=== PATIENT | male | born 1965 | race Caucasian/White ===

== ENCOUNTER 2020-03-26 15:14 | Emergency (ER) | payer SELFPAY ==
[2020-03-26 15:17] VITALS: BP 114/84; PULSE 72; RESP 18; TEMP 36.2; O2SAT 98; BMI 32.3
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
[2020-03-26 15:45] VITALS: BP 106/73; PULSE 73; RESP 17; O2SAT 95
[2020-03-26] MEDS: TRAMadol 50 mg Tablet PO (15:48)
[2020-03-26 16:03] VITALS: BP 106/73; PULSE 68; RESP 16; TEMP 36.6; O2SAT 99
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
--- NOTE | 2020-03-27 08:36 | DCPLANNER ---
manager of digital had message to schedule a follow up appointment for patient with ortho. manager of digital called the ortho clinic, spoke with Pat, gave clinic patients information. manager of digital was told that patients information would be printed and reviewed. Clinic will call patient with appointment information.
--- NOTE | 2020-03-30 12:34 | DCPLANNER ---
community case manager spoke with Pat at ortho, was told that patient does not want appointment at this time.
== END 2020-03-26 16:03 | disposition home or self-care (01) ==
PROVIDERS: Emergency Provider Nurse Practitioner Family
DX: S43.102A Unspecified dislocation of left acromioclavicular joint, initial encounter (principal); S22.42XA Multiple fractures of ribs, left side, initial encounter for closed fracture; V19.9XXA Pedal cyclist (driver) (passenger) injured in unspecified traffic accident, initial encounter
CPT/HCPCS: 12345; 73030; 99281; 99283

== ENCOUNTER 2023-11-02 21:44 | Emergency (ER) | payer SELFPAY ==
[2023-11-02 21:59] VITALS: BP 134/83; PULSE 73; RESP 16; TEMP 36.8; O2SAT 98; BMI 24.4
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
--- NOTE | 2023-11-03 00:09 | PC.NURSE ---
Removed pt C-collar per Dr. Whyte
== END 2023-11-03 00:15 | disposition home or self-care (01) ==
PROVIDERS: Emergency Provider Emergency Medicine
DX: M79.18 Myalgia, other site (principal); V89.2XXA Person injured in unspecified motor-vehicle accident, traffic, initial encounter
CPT/HCPCS: 70450; 72125; 99284